=== PATIENT | female | born 1990 ===

== ENCOUNTER 2019-05-26 16:58 | Emergency (ER) | payer SELFPAY ==
--- NOTE | 2019-05-26 18:58 | EDM.PDOC ---
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 She reports her last menstrual period was February 2019 - believed to be about 13-15 weeks gestation. She has not had any care. Over the past 3 days she has had vaginal bleeding, worse today as she has been passing large clots. Patient has pictures of the clots which appears to have some tissue in it. She states she disposed of this. Patient denies any fever, chills, headache, change in vision, syncope or near syncope. Denies any chest pain, back pain, shortness of breath or cough. Denies any abdominal pain, nausea, vomiting, diarrhea, constipation or dysuria. Patient has been eating and drinking appropriately. 2 para 1 Review of systems: As per history of present illness and below otherwise all systems reviewed and negative. Past medical history: As per history of present illness and as reviewed below otherwise noncontributory. Surgical history: As per history of present illness and as reviewed below otherwise noncontributory. Social history: See social history for further information Family history: As per history of present illness and as reviewed below otherwise noncontributory. Physical exam: General: Well-developed and well-nourished 29-year-old female. Alert and oriented. Nontoxic-appearing and in no acute distress. HEENT: Atraumatic, normocephalic, pupils equal and reactive bilaterally, negative for conjunctival pallor or scleral icterus, mucous membranes moist, TMs normal bilaterally, throat clear, neck supple, nontender, trachea midline. No drooling or trismus noted. No meningeal signs. No hot potato voice noted. Lungs: Clear to auscultation, breath sounds equal bilaterally, chest nontender. Heart: S1S2, regular rate and rhythm without overt murmur Abdomen: Soft, nondistended, nontender. Negative for masses or hepatosplenomegaly. Negative for costovertebral tenderness. Pelvis: Stable nontender. Genitourinary: This was done with consent and a creel selector at the bedside. She tolerated exam well. Cervical office is closed with small amount of blood. No cervical motion tenderness. Skin: Intact, warm, dry. No lesions or rashes noted. Extremities: Atraumatic, moves all extremities per self without difficulty or deficits, negative for cords or calf pain. Neurovascular unremarkable. Neuro: Awake, alert, oriented. Cranial nerves II through XII unremarkable. Cerebellum unremarkable. Motor and sensory unremarkable throughout. Exam nonfocal. Notes: Ultrasound shows thickening and heterogeneous endometrial with blood flow. Findings are consistent with miscarriage. No adnexal or ovarian abnormalities are noted. Her lab work is unremarkable. Pelvic exam shows that the cervical office is closed. She states she does not have an PHLEBOTOMY TECHNOLOGIST provider for follow- up. I did call Rohini Chaudhari and asked if she could follow-up with her. She is agreeable. Supportive care measures were reviewed and discussed. Voices understanding and is agreeable to plan of care. Denies any further questions or concerns at this time. Diagnostics: CBC, CMP, Ab/RH, UA, OB ultrasound Therapeutics: None Prescription: None Impression: Threatened miscarriage Plan: 1. Please start and/or continue to take your vitamin with folic acid once daily. 2. Pelvic rest until cleared by your OBGYN (no tampons, sex, etc...) 3. Tylenol as needed for pain management. 4. Follow up with her PHLEBOTOMY TECHNOLOGIST in the next 2 days, we need to follow your quantitative hCG. Rohini Chaudhari and the women's clinic is aware of you and you can call her office tomorrow for follow up. Return to the ED as needed and as discussed. Definitive disposition and diagnosis as appropriate pending reevaluation and review of above. - Related Data Allergies Allergy/AdvReac Type Severity Reaction Status Date / Time No Known Allergies Allergy Verified 05/26/19 17:40 Home Meds: Home Meds . 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 ED EXAM - Physical Exam Exam: See Below (See dictation) Course - Vital Signs Last Recorded V/S: Last Vital Signs Temp 99.1 F 05/26/19 17:40 Pulse 80 05/26/19 17:40 Resp 16 05/26/19 17:40 BP 127/75 05/26/19 17:40 Pulse Ox 100 05/26/19 17:40 - Orders/Labs/Meds Labs: Laboratory Tests 05/26/19 05/26/19 05/26/19 Range/Units 18:25 19:14 19:14 WBC 7.60 (4.0-11.0) K/uL RBC 4.15 L (4.30-5.90) M/uL Hgb 13.1 (12.0-16.0) g/dL Hct 38.3 (36.0-46.0) % MCV 92.3 (80.0-98.0) fL MCH 31.6 (27.0-32.0) pg MCHC 34.2 (31.0-37.0) g/dL RDW Std Deviation 41.5 (28.0-62.0) fl RDW Coeff of [place] 12 (11.0-15.0) % Plt Count 266 (150-400) K/uL MPV 9.00 (7.40-12.00) fL Neut % (Auto) 61.9 (48.0-80.0) % Lymph % (Auto) 27.1 (16.0-40.0) % Bertie % (Auto) 8.6 (0.0-15.0) % Eos % (Auto) 1.7 (0.0-7.0) % Baso % (Auto) 0.7 (0.0-1.5) % Neut # (Auto) 4.7 (1.4-5.7) K/uL Lymph # (Auto) 2.1 (0.6-2.4) K/uL Bertie # (Auto) 0.7 (0.0-0.8) K/uL Eos # (Auto) 0.1 (0.0-0.7) K/uL Baso # (Auto) 0.1 (0.0-0.1) K/uL Nucleated RBC % 0.0 /100WBC Nucleated RBCs # 0 K/uL Sodium 139 (136-145) mmol/L Potassium 3.9 (3.5-5.1) mmol/L Chloride 104 (98-107) mmol/L Carbon Dioxide 26.4 (21.0-32.0) mmol/L BUN 15 (7.0-18.0) mg/dL Creatinine 1.2 H (0.6-1.0) mg/dL Est Cr Clr Drug Dosing 53.14 mL/min Estimated GFR (MDRD) 53.9 ml/min Glucose 93 (74-106) mg/dL Calcium 9.2 (8.5-10.1) mg/dL Total Bilirubin 0.2 (0.2-1.0) mg/dL AST 14 L (15-37) IU/L ALT 17 (14-63) IU/L Alkaline Phosphatase 43 L (46-116) U/L Total Protein 7.9 (6.4-8.2) g/dL Albumin 3.7 (3.4-5.0) g/dL Globulin 4.2 H (2.6-4.0) g/dL Albumin/Globulin Ratio 0.9 (0.9-1.6) HCG, Quant mIU/mL Urine Color YELLOW Urine Appearance SLT CLOUDY Urine pH 6.5 (5.0-8.0) Ur Specific [place] 1.020 (1.001-1.035) Urine Protein NEGATIVE (NEGATIVE) mg/dL Urine Glucose (UA) NEGATIVE (NEGATIVE) mg/dL Urine Ketones NEGATIVE (NEGATIVE) mg/dL Urine Occult Blood LARGE H (NEGATIVE) Urine Nitrite NEGATIVE (NEGATIVE) Urine Bilirubin NEGATIVE (NEGATIVE) Urine Urobilinogen 0.2 (<2.0) EU/dL Ur Leukocyte Esterase NEGATIVE (NEGATIVE) Urine RBC 1-3 (0-2/HPF) Urine WBC 0-1 (0-5/HPF) Ur Epithelial Cells FEW (NONE-FEW) Urine Bacteria RARE (NEGATIVE) Blood Type 05/26/19 05/26/19 Range/Units 19:14 19:14 WBC (4.0-11.0) K/uL RBC (4.30-5.90) M/uL Hgb (12.0-16.0) g/dL Hct (36.0-46.0) % MCV (80.0-98.0) fL MCH (27.0-32.0) pg MCHC (31.0-37.0) g/dL RDW Std Deviation (28.0-62.0) fl RDW Coeff of [place] (11.0-15.0) % Plt Count (150-400) K/uL MPV (7.40-12.00) fL Neut % (Auto) (48.0-80.0) % Lymph % (Auto) (16.0-40.0) % Bertie % (Auto) (0.0-15.0) % Eos % (Auto) (0.0-7.0) % Baso % (Auto) (0.0-1.5) % Neut # (Auto) (1.4-5.7) K/uL Lymph # (Auto) (0.6-2.4) K/uL Bertie # (Auto) (0.0-0.8) K/uL Eos # (Auto) (0.0-0.7) K/uL Baso # (Auto) (0.0-0.1) K/uL Nucleated RBC % /100WBC Nucleated RBCs # K/uL Sodium (136-145) mmol/L Potassium (3.5-5.1) mmol/L Chloride (98-107) mmol/L Carbon Dioxide (21.0-32.0) mmol/L BUN (7.0-18.0) mg/dL Creatinine (0.6-1.0) mg/dL Est Cr Clr Drug Dosing mL/min Estimated GFR (MDRD) ml/min Glucose (74-106) mg/dL Calcium (8.5-10.1) mg/dL Total Bilirubin (0.2-1.0) mg/dL AST (15-37) IU/L ALT (14-63) IU/L Alkaline Phosphatase (46-116) U/L Total Protein (6.4-8.2) g/dL Albumin (3.4-5.0) g/dL Globulin (2.6-4.0) g/dL Albumin/Globulin Ratio (0.9-1.6) HCG, Quant 3902.0 mIU/mL Urine Color Urine Appearance Urine pH (5.0-8.0) Ur Specific [place] (1.001-1.035) Urine Protein (NEGATIVE) mg/dL Urine Glucose (UA) (NEGATIVE) mg/dL Urine Ketones (NEGATIVE) mg/dL Urine Occult Blood (NEGATIVE) Urine Nitrite (NEGATIVE) Urine Bilirubin (NEGATIVE) Urine Urobilinogen (<2.0) EU/dL Ur Leukocyte Esterase (NEGATIVE) Urine RBC (0-2/HPF) Urine WBC (0-5/HPF) Ur Epithelial Cells (NONE-FEW) Urine Bacteria (NEGATIVE) Blood Type B POSITIVE Departure - Departure Time of Disposition: 20:12 Disposition: Home, Self-Care 01 Clinical Impression: Threatened - Discharge Information Instructions: Threatened Miscarriage, [id number] Referrals: PCP,None [Primary Care Provider] - Forms: ED Department Discharge Additional Instructions: The following information is given to patients seen in the emergency department who are being discharged to home. This information is to outline your options for follow-up care. We provide all patients seen in our emergency department with a follow-up referral. The need for follow-up, as well as the timing and circumstances, are variable depending upon the specifics of your emergency department visit. If you don't have a primary care physician on staff, we will provide you with a referral. We always advise you to contact your personal physician following an emergency department visit to inform them of the circumstance of the visit and for follow-up with them and/or the need for any referrals to a consulting specialist. The emergency department will also refer you to a specialist when appropriate. This referral assures that you have the opportunity for follow-up care with a specialist. All of these measure are taken in an effort to provide you with optimal care, which includes your follow-up. Under all circumstances we always encourage you to contact your private physician who remains a resource for coordinating your care. When calling for follow-up care, please make the office aware that this follow-up is from your recent emergency room visit. If for any reason you are refused follow-up, please contact the [facility] Emergency Department at and asked to speak to the emergency department charge nurse. [facility] Primary Care: Women's Health [address] [place] [id number] 1. Please start and/or continue to take your vitamin with folic acid once daily. 2. Pelvic rest until cleared by your OBGYN (no tampons, sex, etc...) 3. Tylenol as needed for pain management. 4. Follow up with her PHLEBOTOMY TECHNOLOGIST in the next 2 days, we need to follow your quantitative hCG. Rohini Chaudhari and the women's clinic is aware of you and you can call her office tomorrow for follow up. Return to the ED as needed and as discussed. Sepsis Event Note - Evaluation Sepsis Screening Result: No Definite Risk - Focused Exam Vital Signs: Vital Signs Temp Pulse Resp BP Pulse Ox 05/26/19 17:40 99.1 F 80 16 127/75 100 Date Exam was Performed: 05/26/19 Time Exam was Performed: 20:13
--- NOTE | 2019-05-26 19:31 | US ---
Multiple real-time images were obtained transabdominally and transvaginally. Uterus is thickened and heterogeneous. There is some vascular flow within the endometrial cavity. Findings suggest miscarriage with retained products of conception. No gestational sac is seen. Ovaries appear within normal limits. No free fluid is seen. Impression: 1. Thickened and heterogeneous endometrial with blood flow. Findings most likely represent miscarriage with retained products of conception. Please correlate if this matches patient's clinical symptoms. 2. No adnexal or ovarian abnormalities are seen. Diagnostic code #3 This report was dictated in [place] Standard Time
[2019-05-26 19:46] LABS: CARBON DIOXIDE,CO2 26.4 mmol/L (21.0-32.0); POTASSIUM,K 3.9 mmol/L (3.5-5.1)
== END 2019-05-26 20:20 | disposition home or self-care (01) ==
LOC: MW.ED 16:58
DX: O20.0 Threatened abortion (principal)
CPT/HCPCS: 36415; 76801; 76801-26; 80053; 81001; 84702; 85025; 86900; 86901; 99284-25

== ENCOUNTER 2019-06-13 18:16 | Emergency (ER) | payer OTHER ==
[2019-06-13] MEDS ORDERED: Bacitracin Oint 1 GM U/D Packet TOP ONE (18:25)
[2019-06-13] MEDS ORDERED: Diphtheria,Pertussis(Acell),Tetanus Vaccine 0.5 ML Syringe IM ONE (18:25)
--- NOTE | 2019-06-13 18:26 | EDM.PDOC ---
ED HPI GENERAL MEDICAL PROBLEM - General Chief Complaint: Laceration Stated Complaint: LEFT HAND CUT Time Seen by Provider: 06/13/19 18:20 Source of Information: Reports: Patient History Limitations: Reports: No Limitations - History of Present Illness INITIAL COMMENTS - FREE TEXT/NARRATIVE: HISTORY AND PHYSICAL: History of present illness: Patient is a 29-year-old female who presents to the emergency room today with complaints of a laceration to the base of her left thumb. She states while at work a bottle had broken resulting in the laceration. She is unsure of her last tetanus update. She denies any other extremity involvement. Offers no systemic complaints. Review of systems: As per history of present illness and below otherwise all systems reviewed and negative. Past medical history: As per history of present illness and as reviewed below otherwise noncontributory. Surgical history: As per history of present illness and as reviewed below otherwise noncontributory. Social history: See social history for further information Family history: As per history of present illness and as reviewed below otherwise noncontributory. Physical exam: General: Well-developed and well-nourished 29-year-old female. Alert and oriented. Nontoxic-appearing and in no acute distress. HEENT: Atraumatic, normocephalic, pupils equal and reactive bilaterally, negative for conjunctival pallor or scleral icterus, mucous membranes moist, TMs normal bilaterally, throat clear, neck supple, nontender, trachea midline. No drooling or trismus noted. No meningeal signs. No hot potato voice noted. Lungs: Clear to auscultation, breath sounds equal bilaterally, chest nontender. Heart: S1S2, regular rate and rhythm without overt murmur Abdomen: Soft, nondistended, nontender. Negative for masses or hepatosplenomegaly. Negative for costovertebral tenderness. Skin: 2 cm laceration to the base of the left thumb. Appears to have no tendon involvement. Otherwise is skin is intact, warm, dry. No lesions or rashes noted. Extremities: See SKIN for details. He moves all extremities per self without difficulty or deficits. Neurovascular unremarkable. Neuro: Awake, alert, oriented. Cranial nerves II through XII unremarkable. Cerebellum unremarkable. Motor and sensory unremarkable throughout. Exam nonfocal. Notes: 1% lidocaine was used to anesthetize the area. Usual and customary procedures were followed for suture placement. Area was irrigated and chlorhexidine was used to cleanse the area. 4-0 nylon, #4 interrupted sutures were placed. Supportive care measures were reviewed and discussed. Voices understanding and is agreeable to plan of care. Denies any further questions or concerns at this time. Diagnostics: None Therapeutics: Tdap, Lidocaine, Bacitracin, Wound care Prescription: None Impression: Laceration Plan: 1. Keep the area clean and dry. Continue to monitor for signs of infection. Sutures to be removed in 7-10 days. 2. Tylenol and/or ibuprofen as needed for pain management. 3. Please follow-up with your primary care provider in the next 1-2 days. Return to the ED as needed and as discussed. Definitive disposition and diagnosis as appropriate pending reevaluation and review of above. Left Hand Pain Score (Numeric/FACES): 4 - Related Data Allergies Allergy/AdvReac Type Severity Reaction Status Date / Time No Known Allergies Allergy Verified 06/13/19 18:26 Home Meds: Home Meds . 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 ED EXAM, SKIN/RASH Exam: See Below (See dictation) ED SKIN PROCEDURES - Laceration/Wound Repair Left thumb Appearance: Subcutaneous, Linear, Clean Distal NVT: Neuro & Vascular Intact, No Tendon Injury Anesthetic Type: Local Local Anesthesia - Lidocaine (Xylocaine): 1% Plain Local Anesthetic Volume: 2cc Skin Prep: Chlorhexidine (Hibiciens), Saline, Sterile Drape Saline Irrigation (cc's): 50 Exploration/Debridement/Repair: Wound Explored, In a Bloodless Field, Explored to Base, No Foreign Material Found Closed with: Sutures Lac/Wound length In cm: 2 Suture Size: 4-0 Suture Type: Nylon, Interrupted, Simple # of Sutures: 4 Drain Placement: No Sterile Dressing Applied: Provider Tetanus Status Addressed: Yes Complications: No Course - Vital Signs Last Recorded V/S: Last Vital Signs Temp 97.8 F 06/13/19 18:26 Pulse 73 06/13/19 18:26 Resp 16 06/13/19 18:26 BP 111/72 06/13/19 18:26 Pulse Ox 99 06/13/19 18:26 - Orders/Labs/Meds Orders: Active Orders 24 hr Category Date Time Status Vaccines to be Administered [RC] PER UNIT ROUTINE Care 06/13/19 18:25 Active Meds: Medications Discontinued Medications Generic Name Dose Route Start Last Admin Trade Name Lynnette PRN Reason Stop Dose Admin Bacitracin 1 dose 06/13/19 18:25 Bacitracin Oint 1 Gm TOP 06/13/19 18:26 ONETIME ONE Diphtheria/Tetanus/Acell Pertussis 0.5 ml 06/13/19 18:25 Adacel IM 06/13/19 18:26 .ONCE ONE Lidocaine HCl 5 ml 06/13/19 18:25 06/13/19 18:36 Xylocaine-Mpf 1% INJECT 06/13/19 18:26 5 ml ONETIME ONE Administration Departure - Departure Time of Disposition: 18:38 Disposition: Home, Self-Care 01 Clinical Impression: Laceration - Discharge Information Instructions: Laceration Care, Adult, [id number] Referrals: PCP,None [Primary Care Provider] - Forms: ED Department Discharge Additional Instructions: The following information is given to patients seen in the emergency department who are being discharged to home. This information is to outline your options for follow-up care. We provide all patients seen in our emergency department with a follow-up referral. The need for follow-up, as well as the timing and circumstances, are variable depending upon the specifics of your emergency department visit. If you don't have a primary care physician on staff, we will provide you with a referral. We always advise you to contact your personal physician following an emergency department visit to inform them of the circumstance of the visit and for follow-up with them and/or the need for any referrals to a consulting specialist. The emergency department will also refer you to a specialist when appropriate. This referral assures that you have the opportunity for follow-up care with a specialist. All of these measure are taken in an effort to provide you with optimal care, which includes your follow-up. Under all circumstances we always encourage you to contact your private physician who remains a resource for coordinating your care. When calling for follow-up care, please make the office aware that this follow-up is from your recent emergency room visit. If for any reason you are refused follow-up, please contact the [facility] Emergency Department at and asked to speak to the emergency department charge nurse. [facility] Primary Care [address] [place] [address] [facility] [address] [place] [address] 1. Keep the area clean and dry. Continue to monitor for signs of infection. Sutures to be removed in 7-10 days. 2. Tylenol and/or ibuprofen as needed for pain management. 3. Please follow-up with your primary care provider in the next 1-2 days. Return to the ED as needed and as discussed. Sepsis Event Note - Focused Exam Vital Signs: Vital Signs Temp Pulse Resp BP Pulse Ox 06/13/19 18:26 97.8 F 73 16 111/72 99 Date Exam was Performed: 06/13/19 Time Exam was Performed: 18:39 - My Orders Last 24 Hours: My Active Orders 06/13/19 18:25 Vaccines to be Administered [RC] PER UNIT ROUTINE - Assessment/Plan Last 24 Hours: My Active Orders 06/13/19 18:25 Vaccines to be Administered [RC] PER UNIT ROUTINE
== END 2019-06-13 18:53 | disposition home or self-care (01) ==
LOC: MW.ED 18:16
DX: S61.412A Laceration without foreign body of left hand, initial encounter (principal); Z23 Encounter for immunization; W26.8XXA Contact with other sharp object(s), not elsewhere classified, initial encounter; Y99.0 Civilian activity done for income or pay
CPT/HCPCS: 12001; 90471; 90715; 99282; J2001

== ENCOUNTER → 2019-06-23 | Emergency (ER) | payer SELFPAY | LOC: MW.ED 08:46 | DX: Z53.21 Procedure and treatment not carried out due to patient leaving prior to being seen by health care provider (principal) ==

== ENCOUNTER 2021-05-11 05:17 | Inpatient (IN) | payer OTHER ==
[2021-05-11] MEDS ORDERED: Misoprostol 200 MCG Tab PO PRN (05:23)
[2021-05-11] MEDS ORDERED: Terbutaline 1 MG/ML SDV SUBCUT PRN (05:23)
[2021-05-11] MEDS ORDERED: Water For Irrigation,Sterile 1,000 ML Container IRR PRN (05:23)
[2021-05-11] MEDS ORDERED: Methylergonovine 0.2 MG/1 ML Amp IM PRN (05:23)
[2021-05-11] MEDS ORDERED: Sodium Chloride 0.9% 2.5 ML Syringe FLUSH PRN (05:23)
[2021-05-11] MEDS ORDERED: Ondansetron 4 MG/2 ML SDV IVPUSH PRN (05:23)
[2021-05-11] MEDS ORDERED: Butorphanol 1 MG/ML SDV IVPUSH PRN (05:23)
[2021-05-11] MEDS ORDERED: Sodium Chloride 0.9% 10 ML Syringe FLUSH PRN (05:23)
[2021-05-11] MEDS ORDERED: Carboprost Tromethamine 250 MCG/1 ML Amp IM PRN (05:23)
[2021-05-11] MEDS ORDERED: Tranexamic Acid 1,000 MG in Sodium Chloride 0.9% 100 ML IV PRN (05:23)
[2021-05-11] MEDS ORDERED: Sodium Chloride 0.9% 20 ML SDV IV PRN (05:23)
[2021-05-11] MEDS ORDERED: Lidocaine 1% 50 ML MDV INJECT PRN (05:23)
[2021-05-11] MEDS ORDERED: Oxytocin/0.9 % Sodium Chloride 30 UNIT/500 ML BAG IV SCH ×2 (05:30)
[2021-05-11] MEDS: Lactated Ringers 1,000 ML IV SCH ×2 (06:10→12:52)
[2021-05-11] MEDS ORDERED: Morphine 2 MG/ML SYRINGE ONE (16:08)
[2021-05-11] MEDS ORDERED: Morphine 2 MG/ML SYRINGE IVPUSH ONE (16:11)
[2021-05-11] MEDS ORDERED: Witch Hazel Medicated Pads 40/Jar TOP PRN (16:17)
[2021-05-11] MEDS ORDERED: Docusate Sodium 100 MG Cap PO PRN (16:17)
[2021-05-11] MEDS ORDERED: oxyCODONE 5 MG Tab PO PRN (16:17)
[2021-05-11] MEDS ORDERED: Bisacodyl 10 MG Supp RECTAL PRN (16:17)
[2021-05-11] MEDS ORDERED: Lanolin 100% Cream 7 GM Tube TOP PRN (16:17)
[2021-05-11] MEDS ORDERED: Acetaminophen 500 MG Tab PO PRN (16:17)
[2021-05-11] MEDS ORDERED: Ibuprofen 400 MG Tab PO PRN (16:17)
[2021-05-11] MEDS ORDERED: Benzocaine/Menthol 20%-0.5% Spray 78 GM Cannister TOP PRN (16:17)
--- NOTE | 2021-05-11 16:23 | PCM.DEL ---
L & D Note - General Info Date of Service: 05/11/21 Mother's Due Date: 05/17/21 - Delivery Note Labor: Augmented by ARM, Augmented by Oxytocin Cervical Ripening Method: Oxytocin Delivery Outcome: Livebirth Infant Delivery Method: Spontaneous Vaginal Delivery-Single Presentation: Left Occiput Anterior (ANDER) Nuchal Cord: None Anesthesia Type: Local (10cc) Anesthetic: Lidocaine (Xylocaine) 1% Plain Amniotic Fluid Description: Clear Episiotomy Type: None Laceration: 2nd Degree Suture type: Vicryl Suture size: 2-0 Placenta: Intact, Spontaneous Cord: 3 Vessels Estimated Blood Loss: 350 Resuscitation Needed: No [place]: Bulb Syringe, Stimulated, Warmed Provider: Naty Perry Score 1 min: 8 Score 5 min: 9 Second Stage Interventions: Reports: Encouragement Given, Pushing Effectively Delivery Comments (Free Text/Narrative):: Dictation #[id number] - General Info Date of Service: 05/11/21 - Patient Data Weight - Most Recent: 143 lb I&O - Last 24 Hours: Intake & Output 05/11/21 05/11/21 05/11/21 06:59 14:59 22:59 Intake Total 975 Balance 975 Lab Results Last 24 Hours: Laboratory Results - last 24 hr 05/11/21 05/11/21 05/11/21 Range/Units 05:47 06:12 06:12 WBC 8.64 (4.0-11.0) K/uL RBC 3.62 L (4.30-5.90) M/uL Hgb 10.4 L (12.0-16.0) g/dL Hct 31.8 L (36.0-46.0) % MCV 87.8 (80.0-98.0) fL MCH 28.7 (27.0-32.0) pg MCHC 32.7 (31.0-37.0) g/dL RDW Std Deviation 44.2 (28.0-62.0) fl RDW Coeff of [place] 14 (11.0-15.0) % Plt Count 309 (150-400) K/uL MPV 8.80 (7.40-12.00) fL Nucleated RBC % 0.0 /100WBC Nucleated RBCs # 0 K/uL SARS-CoV-2 RNA (KEILY) NEGATIVE (NEGATIVE) Blood Type B POSITIVE Antibody Screen NEGATIVE Med Orders - Current: Current Medications Butorphanol Tartrate (Butorphanol 1 Mg/Ml Sdv) 1 mg IVPUSH Q1H PRN PRN Reason: Pain (severe 7-10) Carboprost Tromethamine (Carboprost Tromethamine 250 Mcg/1 Ml Amp) 250 mcg IM ASDIRECTED PRN PRN Reason: Post Hemorrhage Oxytocin/Sodium Chloride (Oxytocin 30 Unit In Ns 0.9% 500 Ml Premix) 30 unit in 500 mls @ 999 mls/hr IV TITRATE EM[facility] Tranexamic Acid 1,000 mg/ (Sodium Chloride) 110 mls @ 660 mls/hr IV ONETIME PRN PRN Reason: Bleeding Oxytocin/Sodium Chloride (Oxytocin 30 Unit In Ns 0.9% 500 Ml Premix) 30 unit in 500 mls @ 2 mls/hr IV TITRATE EMORY; Protocol Last Titration: 05/11/21 09:30 Dose: 8 munits/min, 8 mls/hr Documented by: Lactated Ringer's (Ringers, Lactated) 1,000 mls @ 150 mls/hr IV ASDIRECTED EMORY Last Admin: 05/11/21 12:52 Dose: 150 mls/hr Documented by: Lidocaine HCl (Lidocaine 1% 50 Ml Mdv) 50 ml INJECT ONETIME PRN PRN Reason: Laceration repair Methylergonovine Maleate (Methylergonovine 0.2 Mg/1 Ml Amp) 0.2 mg IM ASDIRECTED PRN PRN Reason: Post Hemorrhage Misoprostol (Misoprostol 200 Mcg Tab) 200 mcg PO ONETIME PRN PRN Reason: Post Hemorrhage Ondansetron HCl (Ondansetron 4 Mg/2 Ml Sdv) 4 mg IVPUSH Q4H PRN PRN Reason: Nausea/Vomiting Sodium Chloride (Sodium Chloride 0.9% 10 Ml Syringe) 10 ml FLUSH ASDIRECTED PRN PRN Reason: Keep Vein Open Sodium Chloride (Sodium Chloride 0.9% 2.5 Ml Syringe) 2.5 ml FLUSH ASDIRECTED PRN PRN Reason: Keep Vein Open Sodium Chloride (Sodium Chloride 0.9% 20 Ml Sdv) 10 ml IV ASDIRECTED PRN PRN Reason: IV Use Sterile Water (Water For Irrigation,Sterile 1,000 Ml Container) 1,000 ml IRR ASDIRECTED PRN PRN Reason: delivery Terbutaline Sulfate (Terbutaline 1 Mg/Ml Sdv) 0.25 mg SUBCUT ASDIRECTED PRN PRN Reason: Tacysystole Discontinued Medications Morphine Sulfate (Morphine 2 Mg/Ml Syringe) Confirm Administered Dose 2 mg .ROUTE .STK-MED ONE Stop: 05/11/21 16:09 - Problem List Review Problem List Initiated/Reviewed/Updated: Yes - My Orders Last 24 Hours: My Active Orders 05/11/21 05:23 Patient Status [ADT] Routine Bedrest Bathroom Privileges [RC] ASDIRECTED Communication Order [RC] ASDIRECTED Communication Order [RC] ASDIRECTED Heart Tones [RC] CONTINUOUS Non Stress Test [RC] PER UNIT ROUTINE May Shower [RC] ASDIRECTED Notify Provider [RC] PRN Notify Provider [RC] PRN Notify Provider [RC] STAT Oxygen Therapy [RC] ASDIRECTED Up ad Irene [RC] ASDIRECTED Vaginal Exam [RC] PRN Vital Signs [RC] PER UNIT ROUTINE Vital Signs [RC] PER UNIT ROUTINE Butorphanol [Stadol] 1 mg IVPUSH Q1H PRN Carboprost Tromethamine [Hemabate DS] 250 mcg IM ASDIRECTED PRN Lidocaine 1% [Xylocaine 1%] 50 ml INJECT ONETIME PRN Methylergonovine [Methergine] 0.2 mg IM ASDIRECTED PRN Ondansetron [Zofran] 4 mg IVPUSH Q4H PRN Sodium Chloride 0.9% [Normal Saline] 10 ml IV ASDIRECTED PRN Sodium Chloride 0.9% [Saline Flush] 10 ml FLUSH ASDIRECTED PRN Sodium Chloride 0.9% [Saline Flush] 2.5 ml FLUSH ASDIRECTED PRN Terbutaline [Brethine] 0.25 mg SUBCUT ASDIRECTED PRN Tranexamic Acid [Cyklokapron] 1,000 mg Sodium Chloride 0.9% [Normal Saline] 100 ml IV ONETIME Water For Irrigation,Sterile [Sterile Water for Irrigation] 1,000 ml IRR ASDIRECTED PRN miSOPROStoL [Cytotec] 200 mcg PO ONETIME PRN Scalp Electrode [WOMSER] Per Unit Routine Peripheral IV Insertion Adult [OM.PC] Routine Resuscitation Status Routine 05/11/21 05:30 Lactated Ringers [Ringers, Lactated] 1,000 ml IV ASDIRECTED Oxytocin/0.9 % Sodium Chloride [Oxytocin 30 Unit in NS 0.9% 500 ML Premix] 30 unit in 500 ml IV TITRATE Oxytocin/0.9 % Sodium Chloride [Oxytocin 30 Unit in NS 0.9% 500 ML Premix] 30 unit in 500 ml IV TITRATE Medication Administration Instruction [OM.PC] Q3H 05/11/21 06:12 RPR (SYPHILIS SERO) W/ RFLX [REF] Routine 05/11/21 16:17 Patient Status [ADT] Routine May Shower [RC] ASDIRECTED Up ad Irene [RC] ASDIRECTED Vital Signs [RC] PER UNIT ROUTINE Acetaminophen [Tylenol Extra Strength] 1,000 mg PO Q4H PRN Acetaminophen [Tylenol Extra Strength] 500 mg PO Q4H PRN Benzocaine/Menthol [Dermoplast Pain Relief 20%-0.5% [place]gil] 78 gm TOP ASDIRECTED PRN Docusate Sodium [Colace] 100 mg PO Q12H PRN Ibuprofen [Motrin] 400 mg PO Q4H PRN Ibuprofen [Motrin] 800 mg PO Q6H PRN Lanolin [Lansinoh HPA] See Dose Instructions TOP ASDIRECTED PRN bisacodyL [Dulcolax] 10 mg RECTAL ONETIME PRN oxyCODONE 5 mg PO Q2H PRN witch Toney [Tucks] 1 pad TOP ASDIRECTED PRN Assess Lochia [WOMSER] Per Unit Routine Assess Uterine Involution [WOMSER] Per Unit Routine Peripheral IV Discontinue [OM.PC] Routine 05/12/21 05:11 HEMOGLOBIN/HEMATOCRIT,HH [HEME] Timed - Assessment Assessment:: 31 year old PPD0 s/p - Plan Plan:: Routine cares * Rh positive, rubella immune, GBS negative * PO pain medication ordered PRN * Regular diet as tolerated * Encourage ambulation and fluid intake when able. * Plans to breast feed, nursing assistance as needed. Dispo: stable. Admit to floor. Anticipate routine course.
[2021-05-11] MEDS: Acetaminophen 500 MG Tab PO PRN (17:50)
--- NOTE | 2021-05-11 18:30 | OR ---
SURGEON: WILFRID PERRY MD DATE OF PROCEDURE: 05/11/2021 PREOPERATIVE DIAGNOSES: 1. 39-week 1 day intrauterine gestation. 2. Elective induction of labor. POSTOPERATIVE DIAGNOSES: 1. 39-week 1 day intrauterine gestation. 2. Elective induction of labor. PROCEDURES: 1. Spontaneous vaginal delivery. 2. Second-degree perineal laceration repair. PRIMARY SURGEON: Wilfrid Perry MD ANESTHESIA: Local 1% lidocaine, 10 mL. ESTIMATED BLOOD LOSS: 350 mL. COMPLICATIONS: None known. FINDINGS: 1. Viable female . 2. score of 8 and 9. 3. Weight of 7 pounds 15 ounces. 4. Spontaneous delivery of intact placenta, three-vessel cord, clear amniotic fluid. DISPOSITION: Patient in Labor and Delivery room with infant at this time. PROCEDURE DETAILS: The patient is a 31-year-old, 3, para 1, at 39 weeks and 1 day, who presented to Labor and Delivery on the morning of May 11, 2021, for elective induction of labor. Upon arrival, she was noted to be 2 cm dilated, 50% effaced, and -2 station. IV Pitocin was started and labor progressed throughout the day. At approximately 12:30, artificial rupture of membranes was performed with moderate amount of clear fluid. Labor continued to progress, and I was notified at approximately 1520 that the patient was completely dilated and 0 station with the urge to push. I presented to the room shortly thereafter. The patient was then placed in the dorsal lithotomy position. She pushed readily and was able to deliver infant's head atraumatically spontaneously followed by the anterior shoulder, posterior shoulder, and remainder of the body without difficulty. The 's oropharynx and nares were then bulb-suctioned. The was handed off to mother and with attending nursing staff at side. After a delay, the cord was clamped and cut. Arterial, venous, and cord blood gases were then obtained. Light pressure was then applied while the placenta was delivered spontaneously intact. Fundal massage was then performed while 30 units of Pitocin was delivered in 500 mL of IV fluid. Upon inspection of the cervix, vagina, and perineum, there was found to be a second-degree perineal laceration. This was repaired in the usual fashion with 2-0 Vicryl. Hemostasis appeared to be evident. Uterus remained firm. Sponge, lap, and needle count were correct. The patient tolerated the procedure well and remains in Labor and Delivery room at this time. YESENIA / BRIDGETT /[id number]
[2021-05-12] MEDS: Ibuprofen 800 MG Tab PO PRN ×2 (04:18→17:22)
[2021-05-12] MEDS: Acetaminophen 500 MG Tab PO PRN ×2 (04:19→17:23)
--- NOTE | 2021-05-12 09:20 | PCM.PNPP ---
- General Info Date of Service: 05/12/21 Admission Dx/Problem (Free Text): Vaginal delivery Subjective Update: Ambulating about room during rounds. Pain well controlled. Lochia decreasing. Tolerating regular diet. , going well. Denies fever/chills, headache, lightheadedness or dizziness. - General Info Date of Service: 05/12/21 - Patient Data Vital Signs - Most Recent: Last Vital Signs Temp 97.1 F 05/12/21 08:10 Pulse 76 05/12/21 08:10 Resp 16 05/12/21 08:10 BP 94/61 05/12/21 08:10 Pulse Ox 99 05/12/21 08:10 Weight - Most Recent: 143 lb I&O - Last 24 Hours: Intake & Output 05/11/21 05/12/21 05/12/21 22:59 06:59 14:59 Intake Total 1050 Balance 1050 Lab Results - Last 24 Hours: Laboratory Results - last 24 hr 05/11/21 05/12/21 Range/Units 15:46 05:57 Hgb 7.8 L (12.0-16.0) g/dL Hct 23.8 L (36.0-46.0) % Cord ABG pH 7.362 (7.18-7.38) Cord ABG Base Excess -5 (-10--2) Cord VBG pH 7.317 (7.25-7.45) Cord VBG Base Excess -5 (-10--2) Med Orders - Current: Current Medications Acetaminophen (Acetaminophen 500 Mg Tab) 500 mg PO Q4H PRN PRN Reason: Pain (mild 1-3) Acetaminophen (Acetaminophen 500 Mg Tab) 1,000 mg PO Q4H PRN PRN Reason: Pain (mild 1-3) Last Admin: 05/12/21 04:19 Dose: 1,000 mg Documented by: Benzocaine/Menthol (Benzocaine/Menthol 20%-0.5% [place] 78 Gm Cannister) 78 gm TOP ASDIRECTED PRN PRN Reason: Perineal Comfort Measure Last Admin: 05/11/21 17:52 Dose: 1 container Documented by: Bisacodyl (Bisacodyl 10 Mg Supp) 10 mg RECTAL ONETIME PRN PRN Reason: Constipation Butorphanol Tartrate (Butorphanol 1 Mg/Ml Sdv) 1 mg IVPUSH Q1H PRN PRN Reason: Pain (severe 7-10) Carboprost Tromethamine (Carboprost Tromethamine 250 Mcg/1 Ml Amp) 250 mcg IM ASDIRECTED PRN PRN Reason: Post Hemorrhage Docusate Sodium (Docusate Sodium 100 Mg Cap) 100 mg PO Q12H PRN PRN Reason: Constipation Emollient Ointment (Lanolin 100% Cream 7 Gm Tube) 0 gm TOP ASDIRECTED PRN PRN Reason: Sore Nipples Last Admin: 05/11/21 17:53 Dose: 1 applic Documented by: Oxytocin/Sodium Chloride (Oxytocin 30 Unit In Ns 0.9% 500 Ml Premix) 30 unit in 500 mls @ 999 mls/hr IV TITRATE [facility] Tranexamic Acid 1,000 mg/ (Sodium Chloride) 110 mls @ 660 mls/hr IV ONETIME PRN PRN Reason: Bleeding Oxytocin/Sodium Chloride (Oxytocin 30 Unit In Ns 0.9% 500 Ml Premix) 30 unit in 500 mls @ 2 mls/hr IV TITRATE EM[facility]; Protocol Last Titration: 05/11/21 15:46 Dose: 999 munits/min, 999 mls/hr Documented by: Lactated Ringer's (Ringers, Lactated) 1,000 mls @ 150 mls/hr IV ASDIRECTED EMORY Last Admin: 05/11/21 12:52 Dose: 150 mls/hr Documented by: Ibuprofen (Ibuprofen 400 Mg Tab) 400 mg PO Q4H PRN PRN Reason: Pain (mild 1-3) Ibuprofen (Ibuprofen 800 Mg Tab) 800 mg PO Q6H PRN PRN Reason: Cramping Last Admin: 05/12/21 04:18 Dose: 800 mg Documented by: Lidocaine HCl (Lidocaine 1% 50 Ml Mdv) 50 ml INJECT ONETIME PRN PRN Reason: Laceration repair Last Admin: 05/11/21 15:50 Dose: 50 ml Documented by: Methylergonovine Maleate (Methylergonovine 0.2 Mg/1 Ml Amp) 0.2 mg IM ASDIRECTED PRN PRN Reason: Post Hemorrhage Last Admin: 05/11/21 17:14 Dose: 0.2 mg Documented by: Misoprostol (Misoprostol 200 Mcg Tab) 200 mcg PO ONETIME PRN PRN Reason: Post Hemorrhage Ondansetron HCl (Ondansetron 4 Mg/2 Ml Sdv) 4 mg IVPUSH Q4H PRN PRN Reason: Nausea/Vomiting Oxycodone HCl (Oxycodone 5 Mg Tab) 5 mg PO Q2H PRN PRN Reason: Pain (severe 7-10) Sodium Chloride (Sodium Chloride 0.9% 10 Ml Syringe) 10 ml FLUSH ASDIRECTED PRN PRN Reason: Keep Vein Open Sodium Chloride (Sodium Chloride 0.9% 2.5 Ml Syringe) 2.5 ml FLUSH ASDIRECTED PRN PRN Reason: Keep Vein Open Sodium Chloride (Sodium Chloride 0.9% 20 Ml Sdv) 10 ml IV ASDIRECTED PRN PRN Reason: IV Use Sterile Water (Water For Irrigation,Sterile 1,000 Ml Container) 1,000 ml IRR ASDIRECTED PRN PRN Reason: delivery Last Admin: 05/11/21 16:55 Dose: 1,000 ml Documented by: Terbutaline Sulfate (Terbutaline 1 Mg/Ml Sdv) 0.25 mg SUBCUT ASDIRECTED PRN PRN Reason: Tacysystole Witch Toney (Witch Toney Medicated Pads 40/Jar) 1 pad TOP ASDIRECTED PRN PRN Reason: comfort care Last Admin: 05/11/21 17:52 Dose: 1 container Documented by: Discontinued Medications Morphine Sulfate (Morphine 2 Mg/Ml Syringe) Confirm Administered Dose 2 mg .ROUTE .STK-MED ONE Stop: 05/11/21 16:09 Last Admin: 05/11/21 16:11 Dose: 2 mg Documented by: Morphine Sulfate (Morphine 2 Mg/Ml Syringe) 2 mg IVPUSH ONETIME ONE Stop: 05/11/21 16:12 Last Admin: 05/11/21 21:21 Dose: Not Given Documented by: - Infant Interaction Disposition, : in Room with Family Infant Feeding: Breastfed Infant; Nursed Well Support Person: - Recovery Exam Fundal Tone: Firm Fundal Level: At Umbilicus Fundal Placement: Midline Lochia Amount: Small Lochia Color: Rubra/Red Perineum Description: Intact, Minimal Bruising/Swelling, Other (see below) Other Perinuem Description: 2nd degree laceration repaired Episiotomy/Laceration: Approximated Bladder Status: Voiding Urinary Elimination: Voided - Exam General: Alert Lungs: Normal Respiratory Effort Cardiovascular: Regular Rate GI/Abdominal Exam: Soft, Non-Tender Extremities: Normal Range of Motion, Non-Tender, No Pedal Edema Skin: Warm, Dry, Intact Neurological: No New Focal Deficit Psy/Mental Status: Normal Mood - Problem List Review Problem List Initiated/Reviewed/Updated: Yes - My Orders Last 24 Hours: My Active Orders 05/11/21 16:17 Patient Status [ADT] Routine Vital Signs [RC] PER UNIT ROUTINE Acetaminophen [Tylenol Extra Strength] 1,000 mg PO Q4H PRN Acetaminophen [Tylenol Extra Strength] 500 mg PO Q4H PRN Benzocaine/Menthol [Dermoplast Pain Relief 20%-0.5% [place]] 78 gm TOP ASDIRECTED PRN Docusate Sodium [Colace] 100 mg PO Q12H PRN Ibuprofen [Motrin] 400 mg PO Q4H PRN Ibuprofen [Motrin] 800 mg PO Q6H PRN Lanolin [Lansinoh HPA] See Dose Instructions TOP ASDIRECTED PRN bisacodyL [Dulcolax] 10 mg RECTAL ONETIME PRN oxyCODONE 5 mg PO Q2H PRN witch Toney [Tucks] 1 pad TOP ASDIRECTED PRN Assess Lochia [WOMSER] Per Unit Routine Assess Uterine Involution [WOMSER] Per Unit Routine Peripheral IV Discontinue [OM.PC] Routine 05/12/21 Dinner Regular Diet [DIET] - Assessment Assessment:: 31 year old PPD1 s/p - Plan Plan:: Routine cares * Rh positive, rubella immune, GBS negative * PO pain medication ordered PRN * Regular diet as tolerated * Encourage ambulation and fluid intake when able. * Plans to breast feed, nursing assistance as needed. Dispo: stable. Anticipate discharge today, pending maternal/ status. Discharge instructions reviewed. Patient to return to clinic in 4 weeks for PPV.
[2021-05-12] MEDS ORDERED: Ferrous Sulfate 325 MG Tab PO SCH (17:00)
== END 2021-05-12 17:30 | disposition home or self-care (01) | DRG 807 ==
LOC: MW.OBCHECK 05:17 → MW.OB 05:19 → MW.OBCHECK 05:23 → MW.OB 05:23 → OBSVTOIN 15:46 → MW.OB 21:00
PROVIDERS: ADMIT Obstetrics & Gynecology; ATTEND Obstetrics & Gynecology
PROC: 10E0XZZ Delivery of Products of Conception, External Approach (ICD-10-PCS; principal; 2021-05-11)
PROC: 0KQM0ZZ Repair Perineum Muscle, Open Approach (ICD-10-PCS; 2021-05-11)
PROC: 3E0P7VZ Introduction of Hormone into Female Reproductive, Via Natural or Artificial Opening (ICD-10-PCS; 2021-05-11)
PROC: 10907ZC Drainage of Amniotic Fluid, Therapeutic from Products of Conception, Via Natural or Artificial Opening (ICD-10-PCS; 2021-05-11)
DX: O70.1 Second degree perineal laceration during delivery (principal); Z37.0 Single live birth; Z3A.39 39 weeks gestation of pregnancy; Z20.822 Contact with and (suspected) exposure to COVID-19
CPT/HCPCS: 36415; 59025; 59409; 82803; 85014; 85018; 85027; 86592; 86850; 86900; 86901; A9270-GY; J2001; J2210; J2270; J2590; J7120; U0002

== ENCOUNTER 2024-10-05 13:26 | Emergency (ER) | payer SELFPAY ==
[2024-10-05] MEDS ORDERED: Sodium Chloride 0.9% 10 ML Syringe FLUSH PRN (13:39)
[2024-10-05] MEDS ORDERED: Sodium Chloride 0.9% 2.5 ML Syringe FLUSH PRN (13:39)
[2024-10-05] MEDS ORDERED: Sodium Chloride 0.9% 20 ML SDV IV PRN (13:39)
[2024-10-05] MEDS ORDERED: Lactated Ringers 1,000 ML IV SCH (13:45)
[2024-10-05] MEDS: Alum Hydrox/Mag Hydrox/Simeth 15 ML, Metoclopramide 5 MG, Lidocaine 2% 5 ML PO ONE (13:50)
[2024-10-05 13:53] LABS: BASOPHILS ABSOLUTE AUTO 0.03 K/uL (0.00-0.20); BASOPHILS PERCENT AUTO 0.3 % (0.0-1.0); EOSINOPHILS ABSOLUTE AUTO 0.07 K/uL (0.00-0.45); EOSINOPHILS PERCENT AUTO 0.8 % (0.0-6.0); HEMATOCRIT 39.4 % (37.0-47.0); HEMOGLOBIN 13.7 g/dL (12.0-16.0); IMMATURE GRAN ABSOLUTE AUTO 0.02 K/uL (0.00-0.05); IMMATURE GRAN PERCENT AUTO 0.2 % (0.0-0.4); LYMPHOCYTES ABSOLUTE AUTO 1.63 K/uL (1.00-4.80); MEAN CORPUSCULAR HGB CONC 34.8 g/dL (32.0-36.0); MEAN CORPUSCULAR VOLUME 92.1 fL (83.0-99.0); MEAN PLATELET VOLUME 8.1 fL (9.4-12.3); MONOCYTES ABSOLUTE AUTO 0.67 K/uL (0.00-0.80); MONOCYTES PERCENT AUTO 7.4 % (0.0-8.0); NEUTROPHILS ABSOLUTE AUTO 6.63 K/uL (1.80-7.70); NEUTROPHILS PERCENT AUTO 73.3 % (41.0-71.0); PLATELET COUNT,PLT 338 K/uL (150-400); RED BLOOD CELL COUNT 4.28 M/uL (4.10-5.30); WHITE BLOOD CELL COUNT,WBC 9.05 K/uL (3.9-11.3)
[2024-10-05] MEDS: Sodium Chloride 0.9% 1,000 ML IV ONE (13:54)
[2024-10-05] MEDS ORDERED: amLODIPine 5 MG Tab PO STA (14:34)
[2024-10-05 14:38] LABS: A/G RATIO 0.8 (0.9-1.6); ALBUMIN 3.5 g/dL (3.4-5.0); BILIRUBIN TOTAL 0.3 mg/dL (0.2-1.0); CARBON DIOXIDE,CO2 29.2 mmol/L (21.0-32.0); EST CRCL DRUG DOSING (CG) 58.01 mL/min; POTASSIUM,K 3.7 mmol/L (3.5-5.1); PROTEIN TOTAL,TP 7.7 g/dL (6.4-8.2)
[2024-10-05 16:11] LABS: APPEARANCE,URINE SLT CLOUDY; BILIRUBIN,URINE NEGATIVE (NEGATIVE); COLOR,URINE YELLOW; GLUCOSE,URINE NEGATIVE (NEGATIVE); KETONES,URINE NEGATIVE (NEGATIVE); LEUKOCYTE ESTERASE,URINE TRACE (NEGATIVE); NITRITE,URINE POSITIVE (NEGATIVE); OCCULT BLOOD,URINE NEGATIVE (NEGATIVE); PH,URINE 6.5 (5.0-8.0); PROTEIN,URINE NEGATIVE (NEGATIVE); UROBILINOGEN,URINE 0.2 EU/dL (<2.0)
[2024-10-05 16:19] LABS: BACTERIA,URINE 4+ (NEGATIVE); EPITHELIAL CELLS,URINE RARE (NONE-FEW); RBC,URINE 0-1 (0-2/HPF)
== END 2024-10-05 16:42 | disposition home or self-care (01) ==
LOC: MW.ED 13:26
DX: O21.9 Vomiting of pregnancy, unspecified (principal); O23.41 Unspecified infection of urinary tract in pregnancy, first trimester; N39.0 Urinary tract infection, site not specified; Z79.899 Other long term (current) drug therapy; Z75.3 Unavailability and inaccessibility of health-care facilities; Z3A.10 10 weeks gestation of pregnancy
CPT/HCPCS: 36415; 76817; 80053; 81001; 83690; 84702; 85025; 87086; 96360; 99284; A9270; J7030; 87088; 87186; 99283